=== PATIENT | male | born 1935 | race African-American/Black ===

== ENCOUNTER 2024-06-20 14:35 | Emergency (ER) | payer OTHER ==
[~2024-06-20] VITALS: Ht 170.2 cm; Wt 68.0 kg
[2024-06-20 14:37] VITALS: O2SAT 99
[2024-06-20] MEDS: PIPERACILLIN/TAZO 3.375G/50ML 50 ML IV STA (16:06)
[2024-06-20] MEDS: SODIUM CHLORIDE 0.9% (SEPSIS BOLUS) IV ONE (16:07)
[2024-06-20 16:22] LABS: BG BASE EXCESS 5.5 mmol/L (-2.0-3.0); BG CARBOXYHEMOGLOBIN 0.6 % (0.5-1.5); BG DEOXYHEMOGLOBIN 4.7 % (0.0-5.0); BG FRACTION INSPIRED OXYGEN 32; BG HCO3 ACT 29.1 mmol/L (21.0-28.0); BG METHEMOGLOBIN 0.3 % (0.5-1.5); BG OXYGEN SATURATION 95.3 % (94.0-98.0); BG OXYHEMOGLOBIN 94.4 % (94.0-98.0); BG PCO2 38.4 mmHg (35.0-48.0); BG PH 7.497 (7.350-7.450); BG PO2 75.7 mmHg (83.0-108.0); BG SAMPLE SITE LEFT RADIAL; BG TOTAL HEMOGLOBIN 9.3 g/dL (13.5-17.5); BG VENT MODE NASAL CANNULA
[2024-06-20 16:51] LABS: BASOPHILS % 0.8 % (0.0-2.0); EOSINOPHILS % 2.1 % (0.0-5.0); HEMATOCRIT. 25.9 % (42.0-52.0); HEMOGLOBIN. 8.2 g/dL (14.0-18.0); LYMPHOCYTES % 20.2 % (20.0-50.0); MEAN CORPUSCULAR HEMOGLOBIN 24.9 pg (28.0-32.0); MEAN CORPUSCULAR HGB CONC 31.8 g/dL (31.0-37.0); MEAN CORPUSCULAR VOLUME 78.4 fL (80.0-94.0); MEAN PLATELET VOLUME 6.2 fl (7.4-10.4); MONOCYTES % 9.1 % (2.0-8.0); NEUTROPHILS % 67.8 % (40.0-76.0); PLATELET 438 x1000/uL (130-400); RED CELL DISTRIBUTION WIDTH 22.7 % (11.6-14.6); WHITE BLOOD COUNT 10.8 x1000/uL (4.5-11.0)
[2024-06-20 16:52] LABS: ADD RBC MORPHOLOGY YES; DIFFERENTIAL COMMENT 1
[2024-06-20 16:54] LABS: CHLORIDE 108 mEq/L (98-107); POTASSIUM 3.5 mEq/L (3.5-5.1); SODIUM 145 mEq/L (136-145)
[2024-06-20 16:55] LABS: CALCIUM 9.3 mg/dL (8.7-10.4); CARBON DIOXIDE 30 mEq/L (21-32)
[2024-06-20 16:58] LABS: INR 1.2; PROTHROMBIN TIME 12.6 sec (9.6-11.0)
[2024-06-20 17:00] LABS: AMMONIA 21 uMol/L (<32); CREATININE 1.6 mg/dL (0.6-1.3); GLUCOSE 129 mg/dL (70-105); TROPONIN I HIGH SENSITIVITY 20 ng/L (3.0-53); UREA NITROGEN BLOOD 21 mg/dL (9-23)
[2024-06-20 17:01] LABS: LACTATE DEHYDROGENASE 220 IU/L (120-246)
[2024-06-20 17:02] LABS: ALANINE AMINOTRANSFERASE < 7 IU/L (10-49); ALBUMIN 2.5 g/dL (3.2-4.8); ASPARTATE AMINOTRANSFERASE 22 IU/L (<34); BILIRUBIN DIRECT 0.3 mg/dL (<=3.0); BILIRUBIN TOTAL 0.6 mg/dL (0.1-1.0); CREATINE KINASE 63 IU/L (46-171); PROTEIN TOTAL 5.1 g/dL (6.0-8.3)
[2024-06-20 17:12] LABS: ETHANOL BLOOD < 10 mg/dL (<10)
[2024-06-20 19:33] LABS: PLATELET ESTIMATE INCREASED
[2024-06-20 19:34] LABS: ANISOCYTOSIS 2+; HYPOCHROMASIA 1+; MICROCYTOSIS 1+
[2024-06-20 21:10] VITALS: BP 129/59; PULSE 69; RESP 21; TEMP 37.4; O2SAT 100
== END 2024-06-20 21:34 | disposition short-term general hospital (02) ==
LOC: ER 14:35 → EDBEDREQ 20:14 → EDBEDREQTM 20:14 → ER 21:34
DX: J96.01 Acute respiratory failure with hypoxia (principal); J18.9 Pneumonia, unspecified organism; N17.9 Acute kidney failure, unspecified; D64.9 Anemia, unspecified; R41.82 Altered mental status, unspecified; I10 Essential (primary) hypertension; Z20.822 Contact with and (suspected) exposure to COVID-19
CPT/HCPCS: 80076; 80048; 80320; 82140; 82550; 83880; 83605; 83615; 85025; 85610; 86850; 86900; 86901; 87040; 84484; 36415; 84145; 71045; 70450; 82805; 82375; 93005; 96365; 96366; 99291; 87426; 36600; J2543; J7030; 96375; G0480